=== PATIENT | male | born 1990 | race American Indian/Alaskan Native ===

== ENCOUNTER 2019-04-22 10:50 | Emergency (ER) | payer SELFPAY ==
[2019-04-22 10:59] VITALS: BP 128/72
--- NOTE | 2019-04-22 11:11 | Event Note ---
ED Screening Note Date of service: 04/22/19 Time: 11:10 ED Screening Note: 29 y o male presents with penile d/c one episode x 2 weeks This initial assessment/diagnostic orders/clinical plan/treatment(s) is/are subject to change based on patients health status, clinical progression and re-assessment by fellow clinical providers in the ED. Further treatment and workup at subsequent clinical providers discretion. Patient/guardian urged not to elope from the ED as their condition may be serious if not clinically assessed and managed. Initial orders include: Resources given to patient to follow up with [facility]
== END 2019-04-22 11:14 | disposition left against medical advice (07) ==
LOC: ED 10:50
DX: M54.9 Dorsalgia, unspecified (principal); Z53.21 Procedure and treatment not carried out due to patient leaving prior to being seen by health care provider

== ENCOUNTER 2020-02-05 04:38 | Emergency (ER) | payer MEDICARE, OTHER ==
[2020-02-05] MEDS ORDERED: oxyCODONE /ACETAMINOPHEN 5-325MG TAB PO ONE (05:07)
[2020-02-05] MEDS ORDERED: CLINDAMYCIN 300 MG CAP PO ONE (05:07)
[2020-02-05] MEDS ORDERED: SULFAMETHOXAZOLE/TRIMETHOPRIM 800/160MG DS TAB PO ONE (05:07)
[2020-02-05] MEDS ORDERED: ONDANSETRON 4 MG ODT TAB PO ONE (05:07)
[2020-02-05] MEDS ORDERED: LIDOCAINE (1%) 10 MG/1 ML VIAL 20 ML MDV INFILTRATI ONE (05:08)
--- NOTE | 2020-02-05 05:31 | Emergency Department Report ---
ED General Adult HPI - General Chief complaint: Skin/Abscess/Foreign Body Stated complaint: ABSCESS ON TAILBONE Source: patient Mode of arrival: Ambulatory Limitations: No Limitations - History of Present Illness Initial comments: Patient is a 29-year-old -Russian male with no past medical history presents to the ED with complaint of acute onset persistent severe painful swollen erythematous fluctuant rash on pilonidal area of the buttocks for the last 4 days, worse in the last 2 days. Patient states that he has not been able to sleep because of worsening pain in the last 24 hours. Patient states the pain is worse with ambulation, palpation or pressure to the area. Patient denies fever, chills, nausea, vomiting, diarrhea, dizziness, syncope, chest pain, shortness of breath, numbness and tingling or weakness of lower extremities bilaterally, or saddle paresthesia, and urinary or bowel incontinence. MD Complaint: Painful swollen rash on buttocks -: Sudden, days(s) (4) Location: buttocks Radiation: non-radiation Severity scale (0 -10): 10 Quality: aching, sharp Consistency: constant Improves with: none Worsens with: movement Associated Symptoms: denies other symptoms, loss of appetite, malaise. denies: confusion, chest pain, cough, diaphoresis, fever/chills, headaches, nausea/vomiting, rash, shortness of breath, syncope, weakness, other Treatments Prior to Arrival: none - Related Data Previous Rx's Medication Instructions Recorded Last Taken Type Acetaminophen [Tylenol] 500 mg PO Q6HR PRN #30 tablet 02/05/20 Unknown Rx Clindamycin [Clindamycin CAP] 300 mg PO Q8HR #60 capsule 02/05/20 Unknown Rx Ondansetron [Zofran Odt] 4 mg PO Q6HR PRN #15 tab.rapdis 02/05/20 Unknown Rx Sulfamethoxazole/Trimethoprim 1 each PO Q12H #20 tablet 02/05/20 Unknown Rx [Bactrim DS TAB] traMADoL [Ultram] 50 mg PO Q6HR PRN #12 tablet 02/05/20 Unknown Rx Allergies Allergy/AdvReac Type Severity Reaction Status Date / Time No Known Allergies Allergy Unverified 04/22/19 10:56 ED Review of Systems ROS: Stated complaint: ABSCESS ON TAILBONE Other details as noted in HPI Constitutional: denies: chills, fever Eyes: denies: eye pain, eye discharge, vision change ENT: denies: ear pain, throat pain Respiratory: denies: cough, shortness of breath, wheezing Cardiovascular: denies: chest pain, palpitations Endocrine: no symptoms reported Gastrointestinal: denies: abdominal pain, nausea, diarrhea Genitourinary: denies: urgency, dysuria Musculoskeletal: arthralgia, myalgia. denies: back pain, joint swelling Skin: rash (Swollen erythematous maculopapular rash on pilonidal area), change in color. denies: lesions Neurological: denies: headache, weakness, paresthesias Psychiatric: denies: anxiety, depression Hematological/Lymphatic: denies: easy bleeding, easy bruising ED Past Medical Hx - Past Medical History Previous Medical History?: Yes Additional medical history: PUD - Surgical History Past Surgical History?: Yes Additional Surgical History: Sinus - Social History Smoking Status: Current Every Day Smoker Substance Use Type: Marijuana - Medications Home Medications: Home Medications Medication Instructions Recorded Confirmed Last Taken Type Acetaminophen [Tylenol] 500 mg PO Q6HR PRN #30 tablet 02/05/20 Unknown Rx Clindamycin [Clindamycin CAP] 300 mg PO Q8HR #60 capsule 02/05/20 Unknown Rx Ondansetron [Zofran Odt] 4 mg PO Q6HR PRN #15 tab.rapdis 02/05/20 Unknown Rx Sulfamethoxazole/Trimethoprim 1 each PO Q12H #20 tablet 02/05/20 Unknown Rx [Bactrim DS TAB] traMADoL [Ultram] 50 mg PO Q6HR PRN #12 tablet 02/05/20 Unknown Rx ED Physical Exam - General Limitations: No Limitations General appearance: alert, in no apparent distress - Head Head exam: Present: atraumatic, normocephalic, normal inspection - Eye Eye exam: Present: normal appearance, PERRL, EOMI Pupils: Present: normal accommodation - ENT ENT exam: Present: normal exam, normal orophraynx, mucous membranes moist, TM's normal bilaterally, normal external ear exam - Neck Neck exam: Present: normal inspection, full ROM - Respiratory Respiratory exam: Present: normal lung sounds bilaterally. Absent: respiratory distress, wheezes, rales, rhonchi, chest wall tenderness, accessory muscle use, prolonged expiratory - Cardiovascular Cardiovascular Exam: Present: normal rhythm, tachycardia, normal heart sounds. Absent: systolic murmur, diastolic murmur, rubs, gallop - GI/Abdominal GI/Abdominal exam: Present: soft, normal bowel sounds. Absent: tenderness, guarding, rebound, hyperactive bowel sounds, hypoactive bowel sounds, mass - Extremities Exam Extremities exam: Present: normal inspection, full ROM, normal capillary refill - Back Exam Back exam: Present: normal inspection, full ROM. Absent: tenderness, CVA tenderness (R), CVA tenderness (L), muscle spasm, paraspinal tenderness - Neurological Exam Neurological exam: Present: alert, oriented X3, CN II-XII intact, normal gait, reflexes normal - Psychiatric Psychiatric exam: Present: normal affect, normal mood - Skin Skin exam: Present: warm, dry, intact, rash (Swollen, erythematous maculopapular fluctuant severely tender rash on pilonidal area), erythema ED Course Vital Signs 02/05/20 04:47 Temperature 98.9 F Pulse Rate 103 H Respiratory 17 Rate Blood Pressure 149/76 O2 Sat by Pulse 98 Oximetry - I & D Posterior Buttocks Type of Procedure: Simple Site: Pilonidal area of the buttocks Blade Size: 11 I & D Procedure: betadine prep, sterile drapes applied, sterile dressing applied, gauze wick placed Progress: The area was cleaned with normal saline and sterilized with Betadine. Lidocaine 1% solution was injected around the area for local anesthesia. When anesthesia was fully achieved, the area was incised and drained per protocol. The wound was was cleaned and debrided extensively with normal saline breaking for loculations with hemostat. The wound was then packed with iodoform gauze quarter inch and the wound dressed appropriately with 4 x 4 gauze and Tegaderm. Patient tolerated the procedure well. Patient was then discharged home on oral antibiotics and pain medications and was advised to return to the ED in 2 days for wound recheck and packing removal. Patient was also advised to follow-up with his primary care physician in 7 to 10 days for reevaluation or return to the ED immediately if symptoms get worse. ED Medical Decision Making - Medical Decision Making This is a 29-year-old -Russian male with no past medical history presents to the ED with complaint of acute onset persistent severe painful swollen erythematous fluctuant rash on pilonidal area of the buttocks for the last 4 days, worse in the last 2 days. Patient states that he has not been able to sleep because of worsening pain in the last 24 hours. Patient states the pain is worse with ambulation, palpation or pressure to the area. In the ED, patient is alert and oriented x3 and is not in distress but appears to be in pain. Patient was treated for pain in the ED and also received initial oral antibiotics clindamycin and Bactrim DS as well as antiemetics. The pilonidal abscess area was cleaned thoroughly with normal saline and Betadine solution. 1% lidocaine solution was used as local anesthetic. The abscess was incised and drained per protocol and the patient tolerated the procedure well. The wound w as then cleaned thoroughly and debrided and if loculations broken with a hemostat. The wound was then packed with quarter inch iodoform gauze and thereafter dressed appropriately with 4 x 4 gauze and Tegaderm. Patient tolerated procedure well. Patient was discharged home on pain medication and oral antibiotics and was advised to return to the ED in 2 days for wound recheck and packing removal. Patient was otherwise advised to return to the ED immediately if symptoms get worse, otherwise follow-up with his primary care physician in 7 to 10 days for reevaluation. - Differential Diagnosis Pilonidal abscess; cellulitis; folliculitis; hidradenitis suppurativa Critical care attestation.: If time is entered above; I have spent that time in minutes in the direct care of this critically ill patient, excluding procedure time. ED Disposition Clinical Impression: Sacrococcygeal pilonidal cyst with abscess, Cellulitis and abscess of buttock Disposition: DC-01 TO HOME OR SELFCARE Is pt being admited?: No Does the pt Need Aspirin: No Condition: Stable Instructions: Cellulitis (ED), Abscess (ED) Additional Instructions: Take medication with food, drink plenty of fluids and follow-up with your primary care physician in 7 to 10 days for reevaluation. Return to the ED immediately if symptoms get worse. Otherwise return to the ED in 2 days for wound recheck and packing removal. Prescriptions: Acetaminophen [Tylenol] 500 mg PO Q6HR PRN #30 tablet PRN Reason: Pain , Severe (7-10) Sulfamethoxazole/Trimethoprim [Bactrim DS TAB] 1 each PO Q12H #20 tablet Clindamycin [Clindamycin CAP] 300 mg PO Q8HR #60 capsule traMADoL [Ultram] 50 mg PO Q6HR PRN #12 tablet PRN Reason: Pain Ondansetron [Zofran Odt] 4 mg PO Q6HR PRN #15 tab.rapdis PRN Reason: Nausea Referrals: [facility] [place] [Provider Group] - 7-10 days Forms: Work/School Release Form(ED) Time of Disposition: 05:35 Print Language: AMHARIC
[2020-02-05 06:41] VITALS: BP 120/84
== END 2020-02-05 06:40 | disposition home or self-care (01) ==
LOC: ED 04:38
DX: L05.01 Pilonidal cyst with abscess (principal); F17.200 Nicotine dependence, unspecified, uncomplicated; F12.90 Cannabis use, unspecified, uncomplicated; Z79.899 Other long term (current) drug therapy
CPT/HCPCS: Q0162

== ENCOUNTER 2020-02-08 00:11 | Emergency (ER) | payer OTHER ==
[2020-02-08 01:20] VITALS: BP 131/75
== END 2020-02-08 00:37 | disposition left against medical advice (07) ==
LOC: ED 00:11
DX: L02.31 Cutaneous abscess of buttock (principal); Z53.21 Procedure and treatment not carried out due to patient leaving prior to being seen by health care provider

== ENCOUNTER 2020-02-08 20:29 | Emergency (ER) | payer OTHER ==
[2020-02-08 20:50] VITALS: BP 132/90
--- NOTE | 2020-02-08 20:55 | Emergency Department Report ---
Suture/Staple Removal - [facility] Chief Complaint: Laceration/Recheck/Suture Stated Complaint: FOLLOW UP REMOVE PACKING Time Seen by Provider: 02/08/20 20:44 When Sutures or Tere Placed: 3 days Wound Location: buttock area ED Review of Systems ROS: Stated complaint: FOLLOW UP REMOVE PACKING Other details as noted in HPI Constitutional: denies: chills, fever Eyes: denies: eye pain, eye discharge, vision change ENT: denies: ear pain, throat pain Respiratory: denies: cough, shortness of breath, wheezing Cardiovascular: denies: chest pain, palpitations Endocrine: no symptoms reported Gastrointestinal: denies: abdominal pain, nausea, diarrhea Genitourinary: denies: urgency, dysuria Musculoskeletal: denies: back pain, joint swelling, arthralgia Skin: denies: rash, lesions Neurological: denies: headache, weakness, paresthesias Psychiatric: denies: anxiety, depression Hematological/Lymphatic: denies: easy bleeding, easy bruising ED Past Medical Hx - Past Medical History Previous Medical History?: Yes Additional medical history: PUD, gastric ulcers - Surgical History Past Surgical History?: Yes Additional Surgical History: Sinus - Social History Smoking Status: Never Smoker Substance Use Type: None - Medications Home Medications: Home Medications Medication Instructions Recorded Confirmed Last Taken Type Acetaminophen [Tylenol] 500 mg PO Q6HR PRN #30 tablet 02/05/20 Unknown Rx Clindamycin [Clindamycin CAP] 300 mg PO Q8HR #60 capsule 02/05/20 Unknown Rx Ondansetron [Zofran Odt] 4 mg PO Q6HR PRN #15 tab.rapdis 02/05/20 Unknown Rx Sulfamethoxazole/Trimethoprim 1 each PO Q12H #20 tablet 02/05/20 Unknown Rx [Bactrim DS TAB] traMADoL [Ultram] 50 mg PO Q6HR PRN #12 tablet 02/05/20 Unknown Rx Suture Removal Exam - Exam General: Vital signs noted. No distress. Alert and acting appropriately. Wound: No Pathologic Erythema, No Tenderness, No Drainage, No Pus, No Wound Dehiscence Other Systems: All other systems reviewed and are unremarkable. ED Course Vital Signs 02/08/20 20:45 Temperature 98.7 F Pulse Rate 112 H Respiratory 16 Rate Blood Pressure 132/90 O2 Sat by Pulse 94 Oximetry Vital Signs 02/08/20 02/08/20 20:45 20:56 Temperature 98.7 F Pulse Rate 112 H 92 H Respiratory 16 Rate Blood Pressure 132/90 O2 Sat by Pulse 94 Oximetry - Reevaluation(s) Reevaluation #1: 02/08/20 20:55 Patient is speaking in full sentences with no signs of distress noted. ED Recheck MDM - Medical Decision Making 29-year-old male that presents with packing removal. I/D performed 3 days ago. 1/4 packing removed. Pt toleated well. No swelling. well healing. Stated is taking Antibiotics and stated to continue to finish medications as prescribed. Patient was instructed to Follow-up with a primary care doctor in 3-5 days or if symptoms worsen and continue return to emergency room as soon as possible. At time of discharge, the patient does not seem toxic or ill in appearance. No acute signs of distress noted. Patient agrees to discharge treatment plan of care. No further questions noted by the patient. Critical care attestation.: If time is entered above; I have spent that time in minutes in the direct care of this critically ill patient, excluding procedure time. ED Disposition Clinical Impression: Abscess packing removal Disposition: DC-01 TO HOME OR SELFCARE Is pt being admited?: No Does the pt Need Aspirin: No Condition: Stable Additional Instructions: Follow-up with a primary care doctor in 3-5 days or if symptoms worsen and continue return to emergency room as soon as possible. Referrals: PRIMARY CAREMD [Referring] - 3-5 Days OPAL HASSAN MD [Staff Physician] - 3-5 Days
== END 2020-02-08 21:43 | disposition home or self-care (01) ==
LOC: ED 20:29
DX: L02.31 Cutaneous abscess of buttock (principal); Z48.00 Encounter for change or removal of nonsurgical wound dressing

== ENCOUNTER 2021-06-09 10:07 | Emergency (ER) | payer OTHER ==
[2021-06-09] MEDS ORDERED: IBUPROFEN 800 MG TAB PO ONE (11:02)
[2021-06-09] MEDS ORDERED: CYCLOBENZAPRINE 10 MG TAB PO ONE (11:02)
[2021-06-09] MEDS ORDERED: HYDROcodone/ACETAMINOPHEN 5-325 MG TAB PO ONE (11:02)
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
[2021-06-09] MEDS ORDERED: SODIUM CHLORIDE 0.9% 1000 ML 1,000 ML IV ONE (11:37)
[2021-06-09] MEDS ORDERED: fentaNYL 100 MCG/2 ML INJ IV ONE (11:40)
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
[2021-06-09 12:20] LABS: Bilirubin,Urine NEG (Negative); Blood,Urine MOD (Negative); Color,Urine Red (Yellow); Urobilinogen,Urine < 2.0 mg/dL (<2.0)
[2021-06-09 12:45] LABS: Bacteria,Urine 1+ /HPF (Negative); Mucus,Urine 3+ /HPF
[2021-06-09 12:47] LABS: RBC,Urine > 182.0 /HPF (0.0-6.0)
[2021-06-09 12:48] LABS: Hematocrit 46.3 % (35.5-45.6); Hemoglobin 15.2 gm/dl (11.8-15.2); Mean Corpuscular HGB Conc 33 % (32-34); Mean Corpuscular Volume 83 fl (84-94); Platelet Count 147 K/mm3 (140-440); Red Cell Distribution Width 13.2 % (13.2-15.2)
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
[2021-06-09 13:20] LABS: Alanine Aminotransferase 40 units/L (7-56); Albumin 4.7 g/dL (3.9-5); BUN/Creatinine Ratio 10; Blood Urea Nitrogen 11 mg/dL (9-20); Calcium 8.9 mg/dL (8.4-10.2); Hemolysis Index 17
[2021-06-09] MEDS ORDERED: MORPHINE 4 MG/1 ML INJ IV ONE (14:30)
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
[2021-06-09] MEDS ORDERED: MORPHINE 4 MG/1 ML INJ ONE (15:03)
[2021-06-09 16:30] VITALS: BP 134/75
[2021-06-09] MEDS ORDERED: MORPHINE 2 MG/1 ML INJ IV ONE (17:00)
[2021-06-09] MEDS ORDERED: MORPHINE 2 MG/1 ML INJ ONE (17:06)
== END 2021-06-09 17:24 | disposition short-term general hospital (02) ==
LOC: ED 10:07
DX: S32.512A Fracture of superior rim of left pubis, initial encounter for closed fracture (principal); S22.32XA Fracture of one rib, left side, initial encounter for closed fracture; S32.592A Other specified fracture of left pubis, initial encounter for closed fracture; R31.0 Gross hematuria; Z79.899 Other long term (current) drug therapy; Z98.890 Other specified postprocedural states; V89.2XXA Person injured in unspecified motor-vehicle accident, traffic, initial encounter; W22.11XA Striking against or struck by driver side automobile airbag, initial encounter; Y93.89 Activity, other specified; Y92.89 Other specified places as the place of occurrence of the external cause; Y99.8 Other external cause status
CPT/HCPCS: 36415; 71101; 73521; 74177; 80053; 81001; 82550; 85027; 86850; 86900; 86901; 87086; 96361; 96374; 96375; 96376; 99285; J2270; J3010; J7030; Q9967; Q0162

== ENCOUNTER 2021-10-05 18:01 | Emergency (ER) | payer OTHER ==
[2021-10-06] MEDS ORDERED: SULFAMETHOXAZOLE/TRIMETHOPRIM 800/160MG DS TAB PO ONE (01:06)
[2021-10-06] MEDS ORDERED: oxyCODONE /ACETAMINOPHEN 5-325MG TAB PO ONE (01:06)
[2021-10-06] MEDS ORDERED: ONDANSETRON 4 MG ODT TAB PO ONE (01:06)
[2021-10-06] MEDS ORDERED: LIDOCAINE (1%) 10 MG/1 ML VIAL 20 ML MDV INFILTRATI ONE (01:06)
[2021-10-06] MEDS ORDERED: CLINDAMYCIN 300 MG CAP PO ONE (01:07)
--- NOTE | 2021-10-06 03:07 | Emergency Department Report ---
ED General Adult HPI - General Chief complaint: Skin/Abscess/Foreign Body Stated complaint: BOIL LT LEG Source: patient Mode of arrival: Ambulatory Limitations: No Limitations - History of Present Illness Initial comments: Patient is a 31-year-old -[place] male with no past medical history who presents to the ED with complaint of acute onset persistent painful swollen left inguinal rash for the last 1 week. Patient states that the rash started small papule but he decided to manipulate it and subsequently it got worse this patient in the last 4 days. Patient states that she has not been able to walk or sleep because of worsening pain in the left inguinal area. Patient denies numbness and tingling or weakness of lower extremities bilaterally, chest pain, shortness of breath, traumatic injury, testicular pain, hematuria, abdominal pain, nausea, vomiting, fever, chills or low back pain. MD Complaint: Painful swollen rash on left inguinal area -: week(s) (1) Location: lower extremity (left inguinal area) Radiation: non-radiation Severity scale (0 -10): 9 Quality: aching, sharp Consistency: constant Improves with: none Worsens with: movement Associated Symptoms: denies other symptoms, rash (Swollen, painful mild erythematous rash on left inguinal area). denies: confusion, chest pain, cough, diaphoresis, fever/chills, headaches, loss of appetite, malaise, nausea/vomiting, seizure, shortness of breath, syncope Treatments Prior to Arrival: none - Related Data Previous Rx's Medication Instructions Recorded Last Taken Type Acetaminophen [Tylenol] 500 mg PO Q6HR PRN #30 tablet 02/05/20 Unknown Rx Clindamycin [Clindamycin CAP] 300 mg PO Q8HR #60 capsule 02/05/20 Unknown Rx Ondansetron [Zofran Odt] 4 mg PO Q6HR PRN #15 tab.rapdis 02/05/20 Unknown Rx Sulfamethoxazole/Trimethoprim 1 each PO Q12H #20 tablet 02/05/20 Unknown Rx [Bactrim DS TAB] Acetaminophen [Tylenol] 500 mg PO Q6HR PRN #40 tablet 10/06/21 Unknown Rx Clindamycin [Clindamycin CAP] 300 mg PO Q8H #30 cap 10/06/21 Unknown Rx Ondansetron [Zofran Odt] 4 mg PO Q8HR PRN #15 tab.rapdis 10/06/21 Unknown Rx Sulfamethoxazole/Trimethoprim 1 each PO Q12H #20 tab 10/06/21 Unknown Rx [Bactrim DS TAB] traMADoL [Ultram 50 MG tab] 50 mg PO Q6HR PRN #15 tablet 10/06/21 Unknown Rx Allergies Allergy/AdvReac Type Severity Reaction Status Date / Time NSAIDS (Non-Steroidal Allergy Unknown Verified 10/05/21 19:42 Anti-Inflamma ED Review of Systems ROS: Stated complaint: BOIL LT LEG Other details as noted in HPI Constitutional: denies: chills, fever Eyes: denies: eye pain, eye discharge, vision change ENT: denies: ear pain, throat pain Respiratory: denies: cough, shortness of breath, wheezing Cardiovascular: denies: chest pain, palpitations Endocrine: no symptoms reported Gastrointestinal: denies: abdominal pain, nausea, vomiting, diarrhea Genitourinary: denies: urgency, dysuria Musculoskeletal: arthralgia (Left inguinal pain due to swollen, mildly erythematous maculopapular rash), myalgia. denies: back pain, joint swelling Skin: rash (Swollen, painful mild erythematous rash on left inguinal area), change in color. denies: lesions Neurological: denies: headache, weakness, paresthesias Psychiatric: denies: anxiety, depression Hematological/Lymphatic: denies: easy bleeding, easy bruising ED Past Medical Hx - Past Medical History Additional medical history: PUD, gastric ulcers - Surgical History Additional Surgical History: Sinus - Social History Smoking Status: Never Smoker Substance Use Type: None - Medications Home Medications: Home Medications Medication Instructions Recorded Confirmed Last Taken Type Acetaminophen [Tylenol] 500 mg PO Q6HR PRN #30 tablet 02/05/20 Unknown Rx Clindamycin [Clindamycin CAP] 300 mg PO Q8HR #60 capsule 02/05/20 Unknown Rx Ondansetron [Zofran Odt] 4 mg PO Q6HR PRN #15 tab.rapdis 02/05/20 Unknown Rx Sulfamethoxazole/Trimethoprim 1 each PO Q12H #20 tablet 02/05/20 Unknown Rx [Bactrim DS TAB] Acetaminophen [Tylenol] 500 mg PO Q6HR PRN #40 tablet 10/06/21 Unknown Rx Clindamycin [Clindamycin CAP] 300 mg PO Q8H #30 cap 10/06/21 Unknown Rx Ondansetron [Zofran Odt] 4 mg PO Q8HR PRN #15 tab.rapdis 10/06/21 Unknown Rx Sulfamethoxazole/Trimethoprim 1 each PO Q12H #20 tab 10/06/21 Unknown Rx [Bactrim DS TAB] traMADoL [Ultram 50 MG tab] 50 mg PO Q6HR PRN #15 tablet 10/06/21 Unknown Rx ED Physical Exam - General Limitations: No Limitations General appearance: alert, in no apparent distress - Head Head exam: Present: atraumatic, normocephalic, normal inspection - Eye Eye exam: Present: normal appearance, PERRL, EOMI Pupils: Present: normal accommodation - ENT ENT exam: Present: normal exam, normal orophraynx, mucous membranes moist, TM's normal bilaterally, normal external ear exam - Neck Neck exam: Present: normal inspection, full ROM. Absent: tenderness - Respiratory Respiratory exam: Present: normal lung sounds bilaterally. Absent: respiratory distress, wheezes, rales, rhonchi, chest wall tenderness, accessory muscle use, decreased breath sounds, prolonged expiratory - Cardiovascular Cardiovascular Exam: Present: regular rate, normal rhythm. Absent: systolic murmur, diastolic murmur, rubs, gallop - GI/Abdominal GI/Abdominal exam: Present: soft, normal bowel sounds. Absent: tenderness, guarding, rebound, hyperactive bowel sounds, hypoactive bowel sounds, organomegaly, mass, bruit - Extremities Exam Extremities exam: Present: normal inspection, full ROM, tenderness (Palpable left inguinal area due to swollen mildly erythematous maculopapular fluctuant rash), normal capillary refill. Absent: pedal edema, joint swelling, calf tenderness - Back Exam Back exam: Present: normal inspection, full ROM. Absent: tenderness, CVA tenderness (R), CVA tenderness (L), muscle spasm, paraspinal tenderness, vertebral tenderness - Neurological Exam Neurological exam: Present: alert, oriented X3, CN II-XII intact, normal gait, reflexes normal - Psychiatric Psychiatric exam: Present: normal affect, normal mood - Skin Skin exam: Present: warm, dry, intact, normal color, rash (Swollen, mildly erythematous tender maculopapular fluctuant rash), erythema ED Course Vital Signs 10/05/21 19:06 Temperature 99.6 F Pulse Rate 127 H Respiratory 18 Rate Blood Pressure 129/51 O2 Sat by Pulse 92 Oximetry - I & D Left Groin Type of Procedure: Simple Site: Left inguinal area Blade Size: 11 I & D Procedure: betadine prep, sterile drapes applied, sterile dressing applied, gauze wick placed Progress: Area was cleaned with normal saline and Betadine solutions. Lidocaine 1% solution was used as a local anesthetic. The area was incised with scalpel blade #11 and thick purulent malodorous discharge drained from the wound. The wound was debrided extensively with normal saline and flocculation's were broken with hemostat. The wound was then packed with iodoform quarter inch gauze and dressed appropriately with 4 x 4 gauze and Tegaderm. Patient tolerated the procedure well. Patient was then discharged home on pain medications and antibiotics and was advised to return to the ED in 2 days for wound recheck and packing removal. Patient was advised to follow-up with his primary care physician in 7 to 10 days for reevaluation or return to the ED immediately if symptoms get worse. ED Medical Decision Making - Medical Decision Making This is a 31-year-old -[place] male with no past medical history who presents to the ED with complaint of acute onset persistent painful swollen left inguinal rash for the last 1 week. Patient states that the rash started small papule but he decided to manipulate it and subsequently it got worse this patient in the last 4 days. Patient states that she has not been able to walk or sleep because of worsening pain in the left inguinal area. In the ED, patient is alert and oriented x3 and is not in any distress, patient however appears to be in significant pain, is tachycardic but afebrile in triage. Patient was treated for pain in the ED and also given initial oral antibiotics. The area was cleaned with normal saline and Betadine solutions. Lidocaine 1% solution was used as a local anesthetic. The area was incised with scalpel blade #11 and thick purulent malodorous discharge drained from the wound. The wound was debrided extensively with normal saline and flocculation's were broken with hemostat. The wound was then packed with iodoform quarter inch gauze and dressed appropriately with 4 x 4 gauze and Tegaderm. Patient tolerated the procedure well. Patient was then discharged home on pain medications and antibiotics and was advised to return to the ED in 2 days for wound recheck and packing removal. Patient was advised to follow-up with his primary care physician in 7 to 10 days for reevaluation or return to the ED immediately if symptoms get worse. - Differential Diagnosis Cutaneous abscess; cellulitis; folliculitis; Critical care attestation.: If time is entered above; I have spent that time in minutes in the direct care of this critically ill patient, excluding procedure time. ED Disposition Clinical Impression: Cutaneous abscess of groin, Abscess or cellulitis of groin, Acute folliculitis Disposition: HOME / SELF CARE / HOMELESS Is pt being admited?: No Does the pt Need Aspirin: No Condition: Stable Instructions: Skin Abscess, [id number], Cellulitis, Adult, [id number], Folliculitis Additional Instructions: Take medication with food, drink plenty of fluids, follow-up with the primary care physician in 7 to 10 days for reevaluation. Return to the ED in 2 days for wound recheck and packing removal. Otherwise return to the ED immediately if symptoms get worse. Prescriptions: Acetaminophen [Tylenol] 500 mg PO Q6HR PRN #40 tablet PRN Reason: Pain , Severe (7-10) Sulfamethoxazole/Trimethoprim [Bactrim DS TAB] 1 each PO Q12H #20 tab Clindamycin [Clindamycin CAP] 300 mg PO Q8H #30 cap traMADoL [Ultram 50 MG tab] 50 mg PO Q6HR PRN #15 tablet PRN Reason: Pain Ondansetron [Zofran Odt] 4 mg PO Q8HR PRN #15 tab.rapdis PRN Reason: Nausea Referrals: OPAL HASSAN MD [Primary Care Provider] - 3-5 Days Forms: Work/School Release Form(ED) Time of Disposition: 03:13 Print Language: UKRAINIAN
[2021-10-06 05:06] VITALS: BP 123/75
== END 2021-10-06 04:00 | disposition home or self-care (01) ==
LOC: ED 18:01
DX: L02.214 Cutaneous abscess of groin (principal); L73.9 Follicular disorder, unspecified; Z91.09 Other allergy status, other than to drugs and biological substances; Z79.899 Other long term (current) drug therapy
CPT/HCPCS: 99282; J3490; Q0162

== ENCOUNTER 2021-10-08 10:23 | Emergency (ER) | payer OTHER ==
[2021-10-08 11:29] VITALS: BP 132/89
--- NOTE | 2021-10-08 14:27 | Emergency Department Report ---
Suture/Staple Removal - HPI Chief Complaint: Skin/Abscess/Foreign Body Stated Complaint: REMOVAL PACKING Time Seen by Provider: 10/08/21 14:22 When Sutures or Dor[place] Placed: 3 days Wound Location: Patient presents here for packing removal to left he had told inguinal area ED Review of Systems ROS: Stated complaint: REMOVAL PACKING Other details as noted in HPI Comment: All other systems reviewed and negative ED Past Medical Hx - Past Medical History Previous Medical History?: No Additional medical history: PUD, gastric ulcers - Surgical History Past Surgical History?: No Additional Surgical History: Sinus - Social History Smoking Status: Never Smoker - Medications Home Medications: Home Medications Medication Instructions Recorded Confirmed Last Taken Type Acetaminophen [Tylenol] 500 mg PO Q6HR PRN #30 tablet 02/05/20 Unknown Rx Clindamycin [Clindamycin CAP] 300 mg PO Q8HR #60 capsule 02/05/20 Unknown Rx Ondansetron [Zofran Odt] 4 mg PO Q6HR PRN #15 tab.rapdis 02/05/20 Unknown Rx Sulfamethoxazole/Trimethoprim 1 each PO Q12H #20 tablet 02/05/20 Unknown Rx [Bactrim DS TAB] Acetaminophen [Tylenol] 500 mg PO Q6HR PRN #40 tablet 10/06/21 Unknown Rx Clindamycin [Clindamycin CAP] 300 mg PO Q8H #30 cap 10/06/21 Unknown Rx Ondansetron [Zofran Odt] 4 mg PO Q8HR PRN #15 tab.rapdis 10/06/21 Unknown Rx Sulfamethoxazole/Trimethoprim 1 each PO Q12H #20 tab 10/06/21 Unknown Rx [Bactrim DS TAB] traMADoL [Ultram 50 MG tab] 50 mg PO Q6HR PRN #15 tablet 10/06/21 Unknown Rx Suture Removal Exam - Exam General: Vital signs noted. No distress. Alert and acting appropriately. Wound: Yes Tenderness, No Pathologic Erythema, No Drainage, No Pus, No Wound Dehiscence Other Systems: All other systems reviewed and are unremarkable. ED Course Vital Signs 10/08/21 11:26 Temperature 98.4 F Pulse Rate 94 H Respiratory 18 Rate Blood Pressure 132/89 O2 Sat by Pulse 99 Oximetry ED Recheck MDM - Medical Decision Making 31-year-old male presents with packing removal status post I&D 2 days ago. Packing removed without any problems. Wound flushed. Patient tolerated procedure well. Discussed to continue wound care instructions as given. No signs of infection no cellulitis. Critical care attestation.: If time is entered above; I have spent that time in minutes in the direct care of this critically ill patient, excluding procedure time. ED Disposition Clinical Impression: Abscess packing removal Disposition: 01 HOME / SELF CARE / HOMELESS Is pt being admited?: No Does the pt Need Aspirin: No Condition: Stable Instructions: Wound Closure Removal, Care After, How to Change Your Wound Dressing, [id number] Additional Instructions: Make sure to follow up with the primary care physician as discussed. Take all your medications as you've been prescribed from your previous visit. If you have any worsening symptoms or develop new symptoms please return to ED immediately. Referrals: [facility] [Outside] - 3-5 Days Forms: Work/School Release Form(ED) Time of Disposition: 14:26
== END 2021-10-08 14:30 | disposition home or self-care (01) ==
LOC: ED 10:23
DX: Z48.01 Encounter for change or removal of surgical wound dressing (principal); Z53.21 Procedure and treatment not carried out due to patient leaving prior to being seen by health care provider